=== PATIENT | female | born 2000 | race Caucasian/White ===

== ENCOUNTER 2019-12-29 20:34 | Emergency (ER) | payer OTHER ==
[~2019-12-29] VITALS: Ht 157.5 cm; Wt 55.8 kg
[2019-12-29] MEDS ORDERED: FOLIC ACID0.8 M1 PO (20:45)
[2019-12-29] MEDS ORDERED: PRENATABS FA T1 EACH PO (20:45)
== END 2019-12-29 22:14 | disposition home or self-care (01) ==
LOC: ER 20:34
DX: O23.592 Infection of other part of genital tract in pregnancy, second trimester (principal); N76.4 Abscess of vulva; Z3A.20 20 weeks gestation of pregnancy

== ENCOUNTER → 2020-04-03 | Outpatient (CLI) | payer OTHER ==
[~2020-04-03] MED LIST: FOLIC ACID0.8 M1 PO; PRENATABS FA T1 EACH PO
== END | disposition home or self-care (01) ==
LOC: PRENATAL 09:47
PROVIDERS: ATTEND Obstetrics & Gynecology Maternal & Fetal Medicine
DX: O35.0XX1 Maternal care for (suspected) central nervous system malformation in fetus, fetus 1 (principal); O35.3XX1 Maternal care for (suspected) damage to fetus from viral disease in mother, fetus 1; O98.513 Other viral diseases complicating pregnancy, third trimester; O36.8131 Decreased fetal movements, third trimester, fetus 1; Z36.89 Encounter for other specified antenatal screening; Z3A.34 34 weeks gestation of pregnancy

== ENCOUNTER → 2020-04-24 | Outpatient (CLI) | payer OTHER | END | disposition home or self-care (01) | LOC: PRENATAL 10:42 | PROVIDERS: ATTEND Obstetrics & Gynecology Maternal & Fetal Medicine | DX: O35.0XX1 Maternal care for (suspected) central nervous system malformation in fetus, fetus 1 (principal); O26.843 Uterine size-date discrepancy, third trimester; O24.410 Gestational diabetes mellitus in pregnancy, diet controlled; O36.8131 Decreased fetal movements, third trimester, fetus 1; Z36.89 Encounter for other specified antenatal screening; Z3A.38 38 weeks gestation of pregnancy ==

== ENCOUNTER 2020-05-01 13:00 | Inpatient (IN) | payer OTHER ==
[~2020-05-01] VITALS: Ht 152.4 cm; Wt 3.6 kg
== END 2020-05-11 14:29 | disposition home or self-care (01) | DRG 788 ==
LOC: OB/GYN 05-08 05:42 → LDR 05-08 05:42 → OB/GYN 05-08 18:38 → LDR 05-14 13:00
PROVIDERS: ADMIT Obstetrics & Gynecology; ATTEND Obstetrics & Gynecology
PROC: 4A1HXFZ Monitoring of Products of Conception, Cardiac Rhythm, External Approach (ICD-10-PCS; 2020-05-08)
PROC: 10D00Z1 Extraction of Products of Conception, Low, Open Approach (ICD-10-PCS; principal; 2020-05-08 17:00)
DX: O76 Abnormality in fetal heart rate and rhythm complicating labor and delivery (principal); O24.420 Gestational diabetes mellitus in childbirth, diet controlled; Z3A.39 39 weeks gestation of pregnancy; Z37.0 Single live birth; Z20.822 Contact with and (suspected) exposure to COVID-19

== ENCOUNTER 2021-04-08 12:08 | Emergency (ER) | payer OTHER ==
[~2021-04-08] VITALS: Ht 154.9 cm; Wt 62.1 kg
== END 2021-04-08 16:23 | disposition home or self-care (01) ==
LOC: ER 12:08
DX: O9A.212 Injury, poisoning and certain other consequences of external causes complicating pregnancy, second trimester (principal); S00.12XA Contusion of left eyelid and periocular area, initial encounter; R55 Syncope and collapse; Z3A.24 24 weeks gestation of pregnancy; Z91.013 Allergy to seafood; W18.30XA Fall on same level, unspecified, initial encounter; Y93.9 Activity, unspecified; Y92.9 Unspecified place or not applicable; Y99.9 Unspecified external cause status

== ENCOUNTER 2021-05-07 13:00 | Outpatient (CLI) | payer OTHER | END 2021-05-07 14:03 | disposition home or self-care (01) | LOC: PRENATAL 13:00 | PROVIDERS: ATTEND Obstetrics & Gynecology Maternal & Fetal Medicine | DX: O24.419 Gestational diabetes mellitus in pregnancy, unspecified control (principal); O09.292 Supervision of pregnancy with other poor reproductive or obstetric history, second trimester ==

== ENCOUNTER 2021-05-17 14:55 | Outpatient (CLI) | payer OTHER | END 2021-05-17 16:13 | disposition home or self-care (01) | LOC: PRENATAL 14:55 | PROVIDERS: ATTEND Obstetrics & Gynecology Maternal & Fetal Medicine | DX: O35.0XX0 Maternal care for (suspected) central nervous system malformation in fetus, not applicable or unspecified (principal); O35.3XX0 Maternal care for (suspected) damage to fetus from viral disease in mother, not applicable or unspecified; O24.419 Gestational diabetes mellitus in pregnancy, unspecified control; Z3A.30 30 weeks gestation of pregnancy ==

== ENCOUNTER 2021-06-18 15:38 | Outpatient (CLI) | payer OTHER | END 2021-06-18 16:40 | disposition home or self-care (01) | LOC: PRENATAL 15:38 | PROVIDERS: ATTEND Obstetrics & Gynecology Maternal & Fetal Medicine | DX: O26.849 Uterine size-date discrepancy, unspecified trimester (principal); O35.0XX0 Maternal care for (suspected) central nervous system malformation in fetus, not applicable or unspecified; O24.419 Gestational diabetes mellitus in pregnancy, unspecified control; Z3A.34 34 weeks gestation of pregnancy ==

== ENCOUNTER 2021-07-13 05:48 | Inpatient (IN) | payer OTHER ==
[~2021-07-13] VITALS: Ht 154.9 cm; Wt 67.1 kg
== END 2021-07-15 14:42 | disposition home or self-care (01) | DRG 785 ==
LOC: LDR 05:48 → OB/GYN 05:48 → O/R 11:12 → OB/GYN 13:38
PROVIDERS: ADMIT Obstetrics & Gynecology; ATTEND Obstetrics & Gynecology
PROC: 0UB70ZZ Excision of Bilateral Fallopian Tubes, Open Approach (ICD-10-PCS; 2021-07-13)
PROC: 4A1HXCZ Monitoring of Products of Conception, Cardiac Rate, External Approach (ICD-10-PCS; 2021-07-13)
PROC: 10D00Z1 Extraction of Products of Conception, Low, Open Approach (ICD-10-PCS; principal; 2021-07-13 09:30)
DX: O34.211 Maternal care for low transverse scar from previous cesarean delivery (principal); Z30.2 Encounter for sterilization; Z37.0 Single live birth; Z20.822 Contact with and (suspected) exposure to COVID-19; Z3A.38 38 weeks gestation of pregnancy